=== PATIENT | male | born 1960 | race Caucasian/White ===

== ENCOUNTER → 2018-06-17 11:34 | Outpatient (CLI) | payer BC ==
--- NOTE | ~2018-06-17 | ST ---
PATIENT:BOBO HILTON MEDICAL RECORD: [id number] SEX: M LOCATION:[facility] ORDER #: ADMISSION DATE: 06/17/18 AGE OF PATIENT: 58 REFERRING PHYSICIAN: INTERPRETING PHYSICIAN: SOHAN EMMANUEL MD DATE OF SERVICE: 06/17/2018 PROCEDURE: Nuclear stress test. INDICATION: Angina and coronary artery disease. DESCRIPTION: The patient was exercised on standard Nahid protocol for 8 minutes 30 seconds achieving greater than 85% maximum target heart rate response with 33 mCi of sestamibi injected at peak stress, 11 mCi were used previously for rest images. FINDINGS: Gated SPECT reveals preserved ejection fraction at 64%, decreased thickening and brightening throughout the inferior segments. SPECT imaging: Cardiolite was used for myocardial perfusion agent. There was a fixed perfusion defect anteriorly. This improves with stress showing reversed redistribution. There is a mixed perfusion defect inferiorly, partially fixed, partially reversible. There is reversibility throughout the entire inferior and apical segments. OVERALL IMPRESSION: This is a markedly abnormal nuclear stress test suggestive of multivessel coronary artery disease with the perfusion defect anteriorly as well as inferiorly, more reversible ischemia on the inferior defect. We will proceed with coronary angiography as followup study. TRANSINT:[id number] Voice Confirmation ID: [id number] DOCUMENT ID: [id number] SOHAN EMMANUEL MD CC: GUSTABO LEWIS [id number] DICTATION DATE: 06/18/18 1128 ASSISTANT FEDERAL PUBLIC DEFENDER: 06/19/18 0029 DEP CLI 06/17/18 [facility] [address] [place] [address]
== END | disposition home or self-care (01) ==
LOC: D.HCCARDIO 11:34
DX: I25.119 Atherosclerotic heart disease of native coronary artery with unspecified angina pectoris (principal)

== ENCOUNTER 2018-06-28 06:34 | Outpatient (CLI) | payer BC ==
[~2018-06-28] VITALS: Ht 182.9 cm; Wt 113.6 kg
--- NOTE | ~2018-06-28 | HEMODYNAMI ---
PATIENT:BOBO HILTON MEDICAL RECORD: [id number] : 60 LOCATION:[facility] ADMISSION DATE: 06/28/18 Generatedon:06/28/20189:59 Patient name: BOBO HILTON Patient #: [id number] SSN: DO B: 1960 Date of study: 06/28/2018 Page: Of Hemodynamic Procedure Report Patient Data Patient Demographics Procedure consent was obtained First Name: BOBO Gender: Male Last Name: LIDA : 1960 [facility] Initial: PRANAY Age: 58 year(s) Patient #: [id number] Race: Unknown Additional ID: [id number] Contact details [address]: [address] [place] [address] State: [place] City: [place] Zip code: [address] Past Medical History Allergies Allergen Reaction Date Comments Reported Other allergy 06/28/2018 Sulfa Admission Admission Data Admission Date: 06/28/2018 Admission Time: 6:34 Height (in.): 70 BSA: 2.32 (m2) Height (cm.): 177.8 BMI: 36.73 (kg/m2) Weight (lbs.): 256 Weight (kg.): 116.12 Lab Results Lab Result Date: 06/28/2018 Lab Result Time: 0:00 Biochemistry Name Units Result Min Max BUN mg/dl 15 --(--*-)-- 7 18 Creatinine mg/dl 1 --(--*-)-- 0.6 1.3 CBC Name Units Result Min Max Hemoglobin g/dl 16 --(--*-)-- 13.5 17.5 Procedure Procedure Types Cath Procedure Diagnostic Procedure [facility] w/Coronaries Procedure Description Procedure Date Procedure Date: 06/28/2018 Procedure Start Time: 9:50 Procedure End Time: 9:56 Procedure Staff Name Function Jamaal Cruz MD Performing Physician Delta Garcia RT Monitor Emily Pope RT Scrub Henry Quinn RN Nurse Procedure Data Cath Procedure Fluoroscopy Diagnostic fluoroscopy Total fluoroscopy Time: 0.9 time: 0.9 min min Diagnostic fluoroscopy Total fluoroscopy dose: 210 dose: 210 mGy mGy Contrast Material Contrast Material Type Amount (ml) Isovue 300 37 Entry Location Entry Primary Successful Side Size Upsize Upsize Entry Closure Gaytan ccessful Closure Location (Fr) 1 (Fr) 2 (Fr) Remarks Device Remarks Radial Right 6 Fr Mechanical artery Short Compression Estimated blood loss: 5 ml Diagnostic catheters Device Type Used For End Catheter Placement DIAGNOSTIC Reagan 110cm 5 Procedure Fr catheter ([id number]) Procedure Complications No complications Procedure Medications Medication Administration Route Dosage Oxygen etCO2 Nasal cannula 2 l/min Heparin Flush Bag added to field 2 bags (1000units/500ml NS) 0.9% NaCl I.V. 100 ml/hr Radial Cocktail added to field 1 syringe (Verapomil 2mg/Nitro 400mcg/Heparin 1500units) Fentanyl I.V. 50 mcg Versed I.V. 1 mg Fentanyl I.V. 50 mcg Versed I.V. 1 mg Radial Cocktail I.A. 1 syringe (Verapomil 2mg/Nitro 400mcg/Heparin 1500units) Fentanyl I.V. 50 mcg Fentanyl I.V. 50 mcg Hemodynamics Rest BSA: 2.32 (m2) HGB: 16 (g/dl) O2 Consumption: Estimated: 254.79 (ml/min) O2 Cons umption indexed: Estimated:109.82 (ml/min/m) Heart Rate: 49 (bpm) Snapshots Pre Cath Intra NCS Post Cath Vital Signs Time Heart Resp SPO2 etCO2 NIBP (mmHg) Rhythm Pain Sedation Rate (ipm) (%) (mmHg) Status Level (bpm) 9:22:45 46 17 94 33.5 133/77(109) NSR 0 (11) 10(A) , No pain 9:27:09 49 16 98 34.3 127/72(99) NSR 0 (11) 10(A) , No pain 9:31:31 51 16 96 37.2 124/75(93) NSR 0 (11) 10(A) , No pain 9:35:52 46 17 96 39.5 115/69(92) NSR 0 (11) 10(A) , No pain 9:40:14 49 17 93 38.8 122/66(95) NSR 0 (11) 10(A) , No pain 9:44:36 47 17 94 35.8 119/70(90) NSR 0 (11) 10(A) , No pain 9:49:04 47 17 95 38.8 112/63(87) NSR 0 (11) 10(A) , No pain 9:53:27 60 16 94 36.5 111/62(90) NSR 0 (11) 10(A) , No pain 9:55:29 57 16 95 38 117/59(84) NSR 0 (11) 10(A) , No pain Medications Time Medication Route Dose Verified Delivered Reason Notes Effectiveness by by 9:27:51 Oxygen etCO2 2 l/min Jamaal Figueroa Per Nasal Nancy Quinn RN physician cannula 9:28:01 Heparin Flush added 2 bags Jamaal Figueroa used for Bag to Nancy Quinn RN procedure (1000units/500ml field NS) 9:28:11 0.9% NaCl I.V. 100 Jamaal Figueroa Per ml/hr Nancy Quinn RN physician 9:28:21 Radial Cocktail added 1 Jamaal Figueroa used for (Verapomil to syringe Nancy Quinn RN procedure 2mg/Nitro field 400mcg/Heparin 1500units) 9:44:31 Fentanyl I.V. 50 mcg Jamaal Figueroa for sedation Nancy Quinn RN 9:44:39 Versed I.V. 1 mg Jamaal Figueroa for sedation Nancy Quinn RN 9:50:33 Fentanyl I.V. 50 mcg Jamaal Figueroa for sedation Nancy Quinn RN 9:50:38 Versed I.V. 1 mg Jamaal Figueroa for sedation Nancy Quinn RN 9:51:44 Radial Cocktail I.A. 1 Jamaal Hinton for (Verapomil syringe Nancy Cruz MD vasodilation 2mg/Nitro 400mcg/Heparin 1500units) 9:52:39 Fentanyl I.V. 50 mcg Jamaal Hinton for sedation Nancy Cruz MD 9:53:06 Fentanyl I.V. 50 mcg Jamaal Hinton for sedation Nancy Curz MD Procedure Log Time Note 8:30:35 Time tracking: Regular hours (M-F 7:00 - 5:00) 8:30:40 Plan of Care:Hemodynamics will remain stable., Cardiac rhythm will remain stable., Comfort level will be maintained., Respiratory function will remain adequate., Patient/ family verbilizes understanding of procedure., Procedure tolerated without complication., Recovers from procedure without complications.. 8:30:42 Signed procedure consent form obtained from patient. 8:30:44 Diagnostic Cath status Elective 8:35:32 Patient Height : 70 inches 8:35:36 Patient Weight : 256 lbs 9:04:17 H&P Date Dictated: 06/03/2018 Within 30 days and on chart., H&P Addendum completed by physician on day of procedure. (MUST COMPLETE FOR ALL OUTPATIENTS). 9:04:45 Lab Result : BUN 15 mg/dl 9::45 Lab Result : Creatinine 1 mg/dl 9::45 Lab Result : Hemoglobin 16 g/dl 9:07:08 Emily Pope RT(R) sent for patient. Start room use. 9:13:34 Patient received from Pre/Post Procedure Room to CCL 1 Alert and oriented. Tansferred to table in Supine position. 9:13:36 Warm blankets applied, and presley hugger turned on for patient comfort. 9:13:36 Correct patient and procedure confirmed by team. 9:13:37 ECG and BP/O2 sat monitors applied to patient. 9:21:28 Vital chart was started 9:27:51 Oxygen 2 l/min etCO2 Nasal cannula was administered by Henry Quinn RN; Per physician; 9:28:01 Heparin Flush Bag (1000units/500ml NS) 2 bags added to field was administered by Henry Quinn RN; used for procedure; 9:28:11 0.9% NaCl 100 ml/hr I.V. was administered by Henry Quinn RN; Per physician; 9:28:21 Radial Cocktail (Verapomil 2mg/Nitro 400mcg/Heparin 1500units) 1 syringe added to field was administered by Hnery Quinn RN; used for procedure; 9:30:39 Baseline sample Acquired. 9:30:43 Rhythm: sinus rhythm 9:30:44 Full Disclosure recording started 9:30:45 Pre-procedure instructions explained to patient. 9:30:45 Pre-op teaching completed and patient verbalized understanding. 9:30:53 Family in waiting room. 9:30:54 Patient NPO since Midnight. 9:31:05 Patient allergic to Other allergySulfa 9:31:07 Is the patient allergic to Iodine/contrast media? No. 9:31:08 Is patient on blood thinner?No 9:31:23 Patient diabetic? No. 9:31:25 Previous problem with sedation/anesthesia? No ? 9:31:27 Snore? No 9:31:32 Sleep apnea? No 9:31:32 Deviated septum? No 9:31:33 Opens mouth fully? Yes 9:31:34 Sticks out tongue? Yes 9:31:35 Airway obstruction? No ? 9:31:37 Dentures? No ? 9:31:40 Pre procedure: right dorsailis pedis pulse 2+ Normal; easily identifiable; not easily obliterated 9:31:41 Modified Didier's test Ulnar < 7 seconds 9:31:43 Patient pain scale 0/10 ?. 9:31:47 IV patent on arrival in left forearm with 0.9% NaCl at O. 9:31:48 Lab results completed and on chart. 9:31:50 Right Radial & Right Groin area was prepped with chlora-prep and draped in sterile fashion 9:31:52 Alarms reviewed by R. N. 9:31:52 Sharps counted by scrub and verified by R.N. 9:31:54 Use device set Radial Dx or PCI 9:31:55 ACIST Syringe (87615) opened to sterile field. 9:31:55 Medline Cath Pack ([id number]) opened to sterile field. 9:31:56 Bag Decanter (2002) opened to sterile field. 9:31:56 DIAGNOSTIC WIRE .035 260cm J wire (065401) opened to sterile field. 9:31:57 ACIST Hand Control (15358) opened to sterile field. 9:31:57 ACIST Manifold (90844) opened to sterile field. 9:31:58 Tegaderm 4 x 4 (1626W) opened to sterile field. 9:31:58 MBrace Wrist Support ([id number]) opened to sterile field. 9:31:59 SHEATH 6FR Slender (58-0950) opened to sterile field. 9:39:43 Zero performed for pressure channel P1 9:44:07 Physician arrived 9:44:07 --------ALL STOP TIME OUT------ 9:44:08 Final Timeout: patient, procedure, and site verified with staff and physician. All members of the team are in agreement. 9:44:09 Right Radial & Right Groin site verified by team. 9:44:11 Physical assessment completed. ASA score P 2 - A patient with mild systemic disease as per Jamaal Cruz MD. 9:44:14 Sedation plan: IV Moderate Sedation Medication:Versed, Fentanyl 9:44:31 Fentanyl 50 mcg I.V. was administered by Henry Quinn RN; for sedation; 9:44:39 Versed 1 mg I.V. was administered by Henry Quinn RN; for sedation; 9:50:33 Fentanyl 50 mcg I.V. was administered by Henry Quinn RN; for sedation; 9:50:38 Versed 1 mg I.V. was administered by Henry Quinn RN; for sedation; 9:50:40 Procedure started. 9:50:44 Local anesthetic to right radial artery with Lidocaine 2% by Jamaal Cruz MD.INITIAL ACCESS ONLY 9:50:56 A 6 Fr Short sheath was inserted into the Right Radial artery 9:51:00 A DIAGNOSTIC Reagan 110cm 5 Fr catheter (096537) was advanced over the wire and used for Procedure. 9:51:44 Radial Cocktail (Verapomil 2mg/Nitro 400mcg/Heparin 1500units) 1 syringe I.A. was administered by Jamaal Cruz MD; for vasodilation; 9:52:08 LV gram done using POWER 9:52:10 Injector settings: Ml/sec: 5, Volume: 15, 9:52:12 LV hemodynamics recorded. 9:52:23 EF : 50 % 9:52:32 LCA angiography performed. 9:52:39 Fentanyl 50 mcg I.V. was administered by Jamaal Cruz MD; for sedation; 9:53:06 TR BAND Large ([id number]) opened to sterile field. 9:53:06 Fentanyl 50 mcg I.V. was administered by Jamaal Cruz MD; for sedation; 9:53:27 RCA angiography performed. 9:53:40 Catheter removed. 9:54:12 Sheath removed intact; hemostasis achieved with Mechanical Compression to the Right Radial artery. 9:54:14 Procedure ended.(Physican Out) 9:54:42 Fluoroscopy time 00.90 minutes. 9:54:49 Flurop Dose total: 210 9:54:49 Fluoroscopy dose: 210 mGy 9:54:52 Contrast amount:Isovue 300 37ml. 9:55:14 Sharps counted by scrub and verified by R.N. 9:55:16 TR band inflated with 10cc of air. 9:55:17 Insertion/operative site no bleeding no hematoma. 9:55:23 Post right radial artery:stable, soft, clean and dry 9:55:24 Post Procedure Pulses reassessed and unchanged 9:55:27 Post-procedure physical assessment completed. ASA score P 2 - A patient with mild systemic disease as per Jamaal Cruz MD. 9:55:29 Post procedure rhythm: unchanged. 9:55:31 Estimated blood loss: 5 ml 9:55:33 Post procedure instruction explained to patient.Patient verbalizes understanding. 9:55:33 Patient needs reinforcement of post procedure teaching. 9:56:26 Procedure and supply charges have been captured, reviewed, submitted and are correct. 9:56:33 Procedure Complication : No complications 9:56:35 Vital chart was stopped 9:56:35 See physician's report for complete and final results. 9:56:36 Report given to Pre/Post Procedure Room. 9:56:47 Patient transfered to Pre/Post Procedure Room with Stretcher. 9:56:51 Procedure ended. 9:56:51 Full Disclosure recording stopped 9:56:55 End room use (Document Last) Device Usage Item Name Manufacture Quantity Catalog Hospital Part Current Minimal Lot# / Number Charge Number Stock Stock Serial# Code ACIST Acist 1 16459 107655 640573 341419 20 Syringe Medical (31219) Systems Inc Medline Medline 1 [id number] 062790 11110 490398 5 Cath Pack ([id number]) Bag Microtek 1 2001S 218764 32615 195043 5 Decanter Medical Inc. () DIAGNOSTIC [place] 1 306545 740482 875332 160079 30 WIRE .035 260cm J wire (329394) ACIST Hand Acist 1 06793 444699 164978 116338 5 Control Medical (70328) Systems Inc ACIST Acist 1 26228 373719 971072 962790 5 Manifold Medical (84133) Systems Inc Tegaderm 4 3M 1 1626W 772739 631472 593549 5 x 4 (1626W) MBrace Advanced 1 140-0250-00 216686 63740 920826 5 Wrist Vascular Support Dynamics ([id number]) SHEATH 6FR Terumo 1 [id number] 435728 458335 468634 5 Slender (801060) DIAGNOSTIC Terumo 1 40-5958 004394 412529 472135 5 Reagan 110cm 5 Fr catheter (275910) TR BAND Terumo 1 [id number] 595489 787542 673669 40 Large ([id number]) Signature Audit [place] Stage Time Signature Unsigned Intra-Procedure 06/28/2018 Delta Garcia 9:59:10 AM RT(R) Signatures Monitor : Delta Garcia RT Signature : Date : Time : [address] [place] [place] [address]
[2018-06-28] MEDS ORDERED: PROTONIX40 MG PO (07:13)
[2018-06-28] MEDS ORDERED: TENORMIN25 MG PO (07:13)
[2018-06-28] MEDS ORDERED: ASPIRIN81 MG PO (07:13)
[2018-06-28 07:24] VITALS: BP 121/75; Ht 182.9 cm; Wt 113.6 kg
[2018-06-28 07:30] LABS: BASOPHILS 0.2 % (0-2); EOSINOPHILS 1.8 % (0-7); HEMATOCRIT 45.8 % (42.0-54.0); IMMATURE GRANULOCYTES 0.3 % (0-5); LYMPHOCYTES 31.4 % (15-50); MCH 30.9 pg (26.0-34.0); MCHC 34.9 g/dL (31.0-37.0); MCV 88.4 fL (80.0-100.0); MEAN PLATELET VOLUME 10.9 fL (7.4-10.4); MONOCYTES 10.1 % (2-11); NEUTROPHILS 56.2 % (40-80); PLATELET COUNT 108 10x3/uL (130-400); RBC 5.18 10x6/uL (4.20-6.10); RDW 13.3 % (11.5-14.5); WBC 6.1 10x3/uL (4.8-10.8)
[2018-06-28 07:39] LABS: CALC OSMOLALITY 279 mosm/kg (275-300); CALCIUM 8.8 mg/dL (8.5-10.1); CARBON DIOXIDE 25.9 mmol/L (21.0-32.0); CHLORIDE - SERUM 104 mmol/L (98-107); GLUCOSE 113 mg/dL (74-106); POTASSIUM - SERUM 3.8 mmol/L (3.5-5.1); SODIUM 139 mmol/L (136-145); UREA NITROGEN 15 mg/dL (7-18); eGFR NON AFRICAN AMERICAN 81 mL/min (90-120)
--- NOTE | 2018-06-28 10:29 | NUR ---
DR. EMMANUEL ROUNDED AND SPOKE WITH PT AND PT'S FAMILY.
--- NOTE | 2018-06-28 11:03 | NUR ---
2CC OF AIR REMOVED FROM TR BAND. NO BLEEDING/HEMATOMA NOTED.
--- NOTE | 2018-06-28 11:15 | NUR ---
3cc OF AIR REMOVED FROM TR BAND. NO BLEEDING/HEMATOMA NOTED.
--- NOTE | 2018-06-28 11:30 | NUR ---
3cc OF AIR REMOVED FROM TR BAND. TOLERATED WELL. NO BLEEDING/HEMATOMA NOTED. LEFT FA PIV D/C'D WITH CATH TIP INTACT. PT INSTRUCTED TO GET UP AND GET DRESSED. PT'S FAMILY AT BEDSIDE.
--- NOTE | 2018-06-28 11:41 | NUR ---
DISCUSSED DISCHARGE INSTRUCTIONS WITH PT AND PT'S FAMILY. THEY VOICED UNDERSTANDING. RIGHT RADIAL TR BAND REMOVED AND DRESSING APPLIED. NO BLEEDING/HEMATOMA NOTED.
--- NOTE | 2018-06-28 11:45 | NUR ---
PT TAKEN TO RESTROOM. VOIDED WITHOUT DIFFICULTY.
--- NOTE | 2018-06-28 11:50 | NUR ---
PT TAKEN OUT TO VEHICLE BY WHEELCHAIR. NO S/S OF DISTRESS NOTED. RIGHT RADIAL DRESSING C/D/I. NO S/S OF HEMATOMA NOTED.
--- NOTE | 2018-07-04 14:56 | OP ---
PATIENT NAME: BOBO HILTON MEDICAL RECORD: [id number] :60 LOCATION:[facility] ADMISSION DATE: SURGEON: SOHAN EMMANUEL MD DATE OF OPERATION: 06/28/2018 PROCEDURES: 1. Left heart catheterization. 2. Selective coronary angiography. 3. Left ventriculogram. INDICATION: Chest pain compatible with angina. PROCEDURE IN DETAIL: After informed consent was obtained and after a detailed description of risks, benefits as well as alternative therapies, the patient elected to proceed with angiogram and heart catheterization. The right radial area was prepped and draped in normal sterile fashion. Right radial artery was cannulated via modified Seldinger technique with placement of 6-German sheath. All catheters exchanged through this sheath. FINDINGS: The left ventriculogram was performed in standard 30-degree POWER view, reveals good cardiac wall motion throughout all segments. Overall ejection fraction estimated at 50% to 55%. SELECTIVE CORONARY ANGIOGRAPHY: Left main, left anterior descending, left circumflex, right coronary artery are all smooth-walled vessels with no angiographic evidence of coronary artery disease. OVERALL IMPRESSION: 1. No angiographic evidence of coronary artery disease. 2. Normal left heart pressures. 3. Normal left ventricular systolic function. Chest pain is noncardiac in etiology. No further cardiac workup needs to be ascertained. TRANSINT:[id number] Voice Confirmation ID: [id number] DOCUMENT ID: [id number] SOHAN EMMANUEL MD at 1456 CC: [id number] DICTATION DATE: 06/28/18 0959 FURNITURE INSTALLER: 06/28/18 1046 DEP CLI 06/28/18 [place] [id number]
== END 2018-06-28 11:50 | disposition home or self-care (01) ==
LOC: D.CATH 06:34
PROVIDERS: Internal Medicine Interventional Cardiology
DX: R07.89 Other chest pain (principal); Z01.812 Encounter for preprocedural laboratory examination